=== PATIENT | male | born 1950 | race Caucasian/White ===

== ENCOUNTER → 2016-09-12 | Outpatient (CLI) | payer BC ==
--- NOTE | 2016-09-12 17:45 | Diagnostic Imaging Report ---
Indication: PAIN Technique: 2 views of the chest Comparison: 06/09/2011. Findings: Lungs and pleural spaces are clear. Heart size is normal. Bones are unremarkable. No significant change. Impression: No acute process
== END | disposition home or self-care (01) ==
LOC: RAD 11:24
DX: R07.9 Chest pain, unspecified (principal)
CPT/HCPCS: 71020

== ENCOUNTER 2018-08-03 12:58 | Outpatient (CLI) | payer BC ==
--- NOTE | 2018-08-03 16:16 | Diagnostic Imaging Report ---
Indication: Lower back pain and spasm Technique: 4 views of the lumbar spine Comparison: None Findings: Slight lumbar scoliotic deformity Basis of positioning or muscle spasm. Bony alignment is otherwise normal. Vertebral body heights are preserved. Disc spaces are preserved. No acute fractures. The facet and sacroiliac joint spaces are preserved. The included extra spinal soft tissues are unremarkable Impression: No acute process
== END 2018-08-03 14:58 | disposition home or self-care (01) ==
LOC: RAD 12:58
DX: M54.5 Low back pain (principal)
CPT/HCPCS: 72110